=== PATIENT | female | born 1930 | race Caucasian/White ===

== ENCOUNTER 2016-12-18 15:18 | Inpatient (IN) ==
--- NOTE | 2016-12-18 15:49 | Emergency Department Note ---
Disposition Clinical Impression: Acute asthmatic bronchitis, Hypoxia, Failure of outpatient treatment, New onset atrial fibrillation Disposition: Admitted As Inpatient Condition: Good Referrals: Scooter Ferrer MD [Primary Care Provider] - Forms: ED Satisfaction Letter SOB HPI - General Chief Complaint: ED Shortness of Breath/Dyspnea Stated Complaint: wheezing Time Seen by Provider: 12/18/16 15:20 Source: patient Limitations: no limitations Nursing Notes Reviewed: Yes Vital Signs Reviewed: Yes - History of Present Illness 86-year-old female is brought to the emergency department after being seen by Dr. Ferrer in his office. Patient recently has been having problems with her breathing and started on prednisone a few days ago. The patient was reevaluated today and seemed to be getting worse with her difficulty in breathing and she was brought to the emergency department for further evaluation. Patient denies any chest pain. She does have a cough but is not not productive since she does not experience it. Should there is been no obvious fever. She denies any nausea vomiting. She has a past history of dementia and COPD. - Related Data Home Medications Medication Instructions Recorded Confirmed Albuterol Sulfate [Proair Hfa] 2 puff IH Q4H PRN 12/18/16 12/18/16 Aspirin 81 mg PO DAILY 12/18/16 12/18/16 Diltiazem HCl [Diltiazem 24Hr Cd] 120 mg PO 12/18/16 Donepezil HCl [Aricept] 5 mg PO DAILY 12/18/16 12/18/16 Ibuprofen [Motrin] 800 mg PO Q8HR PRN 12/18/16 12/18/16 Lovastatin 40 mg PO DAILY 12/18/16 12/18/16 Memantine [Namenda] 5 mg PO BID 12/18/16 12/18/16 PredniSONE [Prednisone] 10 mg PO DAILY 12/18/16 12/18/16 Triamterene/HCTZ 37.5/25mg 1 each PO DAILY 12/18/16 12/18/16 [Dyazide] Allergies Allergy/AdvReac Type Severity Reaction Status Date / Time No Known Allergies Allergy Verified 12/18/16 15:33 Review of Systems: Constitutional: [Negative for fever and chills.] HENT: [Negative for congestion.] Eyes: [Negative for discharge.] Respiratory: See history of present illness Cardiovascular: [Negative for chest pain.] Gastrointestinal: [Negative for nausea, vomiting, abdominal pain and diarrhea.] Endocrine: [Negative for excessive thirst,urination] Genitourinary: [Negative for dysuria and frequency.] Musculoskeletal: [Negative for myalgias and arthralgias.] Skin: [Negative for rash.] Neurological: [Negative for dizziness, localized weakness and headaches.] Psychiatric/Behavioral: [Negative for nervous/anxious.] All other systems reviewed and are negative. Past Medical History - Past Medical History Attestation: Yes The following information was validated with the patient. Source: patient Medical history: Reports: arthritis, dementia, hyperlipidemia, hypertension Psychiatric history: Reports: no psych history - Social History Smoking Status: Never smoker Smokeless Tobacco Status: No Alcohol use: Reports: none Drug use: Reports: none Physical Exam Constitutional: Patient is [alert], [healthy but elderly], [well nourished, well developed], mild tachypnea and cooperative. . The patient appears mildly symptomatic with audible noises with breathing, nontoxic, and appears mildly ill. There is [no pain]. HENT: Head: Normocephalic and atraumatic. Right Ear: External ear normal. Left Ear: External ear normal. Nose: Nose normal. Mouth/Throat: Oropharynx is clear and mucous membranes show [good hydration.][] Eyes: Conjunctivae and EOM are normal. Pupils are equal, round, and reactive to light. Right eye exhibits [no] discharge. Left eye exhibits [no] discharge. Neck: Trachea is midline, normal range of motion and [phonation normal]. Neck supple. Cardiovascular: [Regular rhythm], S1 normal, S2 normal, normal heart sounds and intact distal pulses. Exam reveals no gallop and no friction rub. No murmur heard. Pulmonary/Chest: Effort increased No stridor. Mild tachypnea. [No] respiratory distress. There are [no] decreased breath sounds. There are diffuse rhonchi primarily heard throughout all lung clark with very few wheezes Abdominal: Soft. [Bowel sounds are normal]. There exhibits [no] distension and [no] mass. There is no hepatosplenomegaly. There is [no tenderness], [no] CVA tenderness. There is [no rigidity, no rebound, no guarding]. Musculoskeletal: Normal range of motion of uninvolved extremities. There exhibits [no edema]. [ ] Neurological: Patient is alert. Patient displays no atrophy and no tremor. No cranial nerve deficit and exhibits normal muscle tone. Coordination normal. Skin: Skin is warm and dry. No rash noted. No erythema. Psychiatric: Patient has a normal mood,affect, behavior, judgment, and thought content. Course Course Narrative: Patient was discussed with Dr. Ferrer and we have decided to admit her to the hospital for treatment related to her asthma and new onset atrial fibrillation - Reevaluation(s) Reevaluation #1: Patient on repeat evaluation after receiving breathing treatment and Solu- Medrol shows significant improvement of her audible noises related to her breathing. The daughter states that she has significant amount of sputum production that is now cause significant improvement. Vital Signs Temperature 97.9 F 12/18/16 15:25 Pulse Rate 118 12/18/16 15:25 Respiratory Rate 24 12/18/16 15:25 Blood Pressure 175/93 12/18/16 15:25 O2 Sat by Pulse Oximetry 95 12/18/16 15:25 Temperature 97.9 F 12/18/16 15:25 Pulse Rate 110 12/18/16 17:15 Respiratory Rate 20 12/18/16 17:15 Blood Pressure 162/90 12/18/16 17:15 O2 Sat by Pulse Oximetry 98 12/18/16 17:16 Oxygen Delivery Oxygen Delivery Nasal Cannula Shortness of Breath/Dyspnea - Lab Data Lab results reviewed: Yes I reviewed the patient's lab results. Result diagrams: 12/18/16 16:15 12/18/16 16:15 Lab Results 12/18/16 12/18/16 12/18/16 Range/Units 16:15 16:15 16:15 WBC 11.2 H (4.3-11.1) K/mcL RBC 4.44 (3.82-4.97) M/mcL Hgb 13.3 (11.5-15.4) g/dL Hct 38.4 (35.3-44.9) % MCV 86.5 (83.0-100.0) fL MCH 30.0 (28.0-33.3) pg MCHC 34.6 (31.6-35.5) g/dL RDW 13.6 (11.5-14.5) % Plt Count 223 (140-400) K/mcL MPV 10.5 (9.4-12.4) fL Immature Gran % 2.0 (0-4) % Seg Neutrophils % 82.3 % Lymphocytes % 6.0 % Monocytes % 9.4 % Eosinophils % 0.0 % Basophils % 0.3 % Neutrophils # 9.2 H (1.6-8.9) K/mcL Lymphocytes # 0.7 (0.6-4.6) K/mcL Monocytes # 1.1 (0.0-1.3) K/mcL Eosinophils # 0.0 (0.0-0.6) K/mcL Basophils # 0.0 (0.0-0.2) K/mcL ABG pH (7.32-7.45) pH Units ABG pCO2 (35-45) mmHg ABG pO2 (85-104) mmHg ABG HCO3 (21-27) mEQ/L ABG Total CO2 (20-26) mEq/L ABG O2 Saturation (95-98) % ABG Base Excess (-2.0 to 3.0) mEq/L Lactate (0.7-2.1) mmol/L Blood Gas Modality Sodium 138 (136-145) mEq/L Potassium 3.7 (3.5-4.5) mEq/L Chloride 103 (98-109) mEq/L Carbon Dioxide 24 (19-29) mEq/L BUN 34 H (7-20) mg/dL Creatinine 1.09 (0.57-1.11) mg/dL Est GFR ( Amer) 58 L (> 60) Est GFR (Non-Af Amer) 48 L (> 60) BUN/Creatinine Ratio 31 H (6-26) Glucose 205 H (70-99) mg/dL Calculated Osmolality 300 (280-300) Calcium 9.8 (8.6-10.8) mg/dL Total Bilirubin 0.3 (0.2-1.2) mg/dL Direct Bilirubin 0.1 (0.0-0.5) mg/dL Indirect Bilirubin 0.2 (0.0-1.2) mg/dL AST 20 (5-34) Units/L ALT 17 (0-55) Units/L Alkaline Phosphatase 56 (38-126) Units/L Troponin I 0.04 H* (0-0.03) ng/mL B-Natriuretic Peptide (0-100) pg/mL Serum Total Protein 8.1 (6.0-8.3) g/dL Albumin 3.7 (3.5-5.0) g/dL Globulin 4.4 H (2.4-3.5) g/dL Albumin/Globulin Ratio 0.8 L (1.1-2.2) 12/18/16 12/18/16 Range/Units 16:15 16:25 WBC (4.3-11.1) K/mcL RBC (3.82-4.97) M/mcL Hgb (11.5-15.4) g/dL Hct (35.3-44.9) % MCV (83.0-100.0) fL MCH (28.0-33.3) pg MCHC (31.6-35.5) g/dL RDW (11.5-14.5) % Plt Count (140-400) K/mcL MPV (9.4-12.4) fL Immature Gran % (0-4) % Seg Neutrophils % % Lymphocytes % % Monocytes % % Eosinophils % % Basophils % % Neutrophils # (1.6-8.9) K/mcL Lymphocytes # (0.6-4.6) K/mcL Monocytes # (0.0-1.3) K/mcL Eosinophils # (0.0-0.6) K/mcL Basophils # (0.0-0.2) K/mcL ABG pH 7.43 (7.32-7.45) pH Units ABG pCO2 37 (35-45) mmHg ABG pO2 67 L (85-104) mmHg ABG HCO3 24.6 (21-27) mEQ/L ABG Total CO2 25.7 (20-26) mEq/L ABG O2 Saturation 94 L (95-98) % ABG Base Excess 0.4 (-2.0 to 3.0) mEq/L Lactate 3.0 H (0.7-2.1) mmol/L Blood Gas Modality NC Sodium (136-145) mEq/L Potassium (3.5-4.5) mEq/L Chloride (98-109) mEq/L Carbon Dioxide (19-29) mEq/L BUN (7-20) mg/dL Creatinine (0.57-1.11) mg/dL Est GFR ( Amer) (> 60) Est GFR (Non-Af Amer) (> 60) BUN/Creatinine Ratio (6-26) Glucose (70-99) mg/dL Calculated Osmolality (280-300) Calcium (8.6-10.8) mg/dL Total Bilirubin (0.2-1.2) mg/dL Direct Bilirubin (0.0-0.5) mg/dL Indirect Bilirubin (0.0-1.2) mg/dL AST (5-34) Units/L ALT (0-55) Units/L Alkaline Phosphatase (38-126) Units/L Troponin I (0-0.03) ng/mL B-Natriuretic Peptide 245 H (0-100) pg/mL Serum Total Protein (6.0-8.3) g/dL Albumin (3.5-5.0) g/dL Globulin (2.4-3.5) g/dL Albumin/Globulin Ratio (1.1-2.2) - Radiology Data Radiology results reviewed: Yes I reviewed the patient's radiology results. I have contemporaneously read the chest x-ray which has the following findings: There is no acute infiltrate noted on this exam. - EKG Data EKG attestation: Yes I reviewed and interpreted this EKG. Rate: Reports: tachycardia Rhythm: Reports: A.Fib, PVC's [place]/QRS: Reports: normal Interpretation: Reports: nonspecific ST-T wave changes
[2016-12-18] MEDS ORDERED: Levalbuterol Neb 1.25 MG/3 ML IH ONE (16:25)
[2016-12-18 16:41] LABS: ABG Base Excess 0.4 mEq/L (-2.0 to 3.0); ABG HCO3 24.6 mEQ/L (21-27); ABG Oxygen Saturation 94 % (95-98); ABG PCO2 37 mmHg (35-45); ABG PH 7.43 pH Units (7.32-7.45); ABG PO2 67 mmHg (85-104); ABG TCO2 25.7 mEq/L (20-26)
[2016-12-18 16:45] LABS: Basophils % 0.3 %; Hematocrit 38.4 % (35.3-44.9); Hemoglobin 13.3 g/dL (11.5-15.4); Lymphocytes # 0.7 K/mcL (0.6-4.6); Mean Corpuscular HGB Conc 34.6 g/dL (31.6-35.5); Mean Corpuscular Volume 86.5 fL (83.0-100.0); Mean Platelet Volume 10.5 fL (9.4-12.4); Monocytes # 1.1 K/mcL (0.0-1.3); Monocytes % 9.4 %; Platelet Count 223 K/mcL (140-400); Red Blood Count 4.44 M/mcL (3.82-4.97); Red Cell Distribution Width 13.6 % (11.5-14.5); Segmented Neutrophils % 82.3 %
[2016-12-18 16:54] LABS: Albumin 3.7 g/dL (3.5-5.0); Albumin/Globulin Ratio 0.8 (1.1-2.2); Bilirubin,Direct 0.1 mg/dL (0.0-0.5); Bilirubin,Indirect 0.2 mg/dL (0.0-1.2); Bilirubin,Total 0.3 mg/dL (0.2-1.2); Calcium 9.8 mg/dL (8.6-10.8); Globulin 4.4 g/dL (2.4-3.5); Potassium 3.7 mEq/L (3.5-4.5); Total Protein 8.1 g/dL (6.0-8.3)
[2016-12-18 17:03] LABS: Neutrophils # 9.2 K/mcL (1.6-8.9)
[2016-12-18] MEDS ORDERED: CefTRIAXone 1,000 MG VIAL IM SCH (18:00)
[2016-12-18] MEDS ORDERED: Ondansetron 4 MG/2 ML VIAL IVP PRN (18:11)
[2016-12-18] MEDS ORDERED: CefTRIAXone 1,000 MG VIAL IVPB SCH (18:11)
[2016-12-18] MEDS ORDERED: Ibuprofen 800 MG TABLET PO PRN (18:12)
[2016-12-18] MEDS: CefTRIAXone 1,000 MG in D5% in Water (Mini-Bag+) 100 ML IVPB SCH (20:15)
[2016-12-18] MEDS: Albuterol 2.5 MG/3 ML NEBULIZER IH SCH (21:42)
--- NOTE | 2016-12-18 22:37 | Internal Med History&Physical ---
Date of Encounter: 12/18/16 Time of Encounter: 22:27 Assessment and Plan (1) Acute asthmatic bronchitis Current visit: Yes Status: Acute Patient failed outpatient treatment for exacerbation of asthma on 2 visits to the office and was sent to the emergency room for evaluation. She had a hypoxic , tachypnea, wheezing which are all now improved. Continuous IV steroids, oxygen as needed, pulmonary treatments. (2) Hypoxia Current visit: Yes Status: Acute In the office O2 saturation was 89%. It is improved now. His oxygen PRN as well as nebulizer machine. (3) New onset atrial fibrillation Current visit: Yes Status: Acute In the office she was found to have irregular heart rate and atrial fibrillation confirmed on 12 lead EKG and monitor tonight. In the officer rate was 120, it is now 80 to 110. She uses diltiazem long-term for blood pressure control, we will increase the rate control as well. She is not a good candidate for anticoagulation because of her frailty, age, fall risk and dementia. (4) Elevated troponin Current visit: Yes Status: Acute She had elevated troponin to 0.04 in the emergency room. She has had no cardiac type chest pain. It is likely related to her tachycardia. Doubt true myocardial infarction. We will continue to monitor but I do not feel with her medical problems and age that she needs aggressive cardiac intervention, catheterization etc. She has had no angina. (5) Dementia Current visit: Yes Status: Acute She has chronic history dementia, she is pleasant and sometimes becomes anxious and agitated. Family takes care of her 24 hours per day. A daughter will be staying with her tonight. We will continue her Aricept and Namenda, I am not sure it really makes that much difference though. Qualifiers: Dementia type: Alzheimer's disease Alzheimer's disease onset: late-onset Dementia behavioral disturbance: without behavioral disturbance Qualified Code (s): G30.1 - Alzheimer's disease with late onset; F02.80 - Dementia in other diseases classified elsewhere without behavioral disturbance (6) Diet-controlled diabetes mellitus Current visit: Yes Status: Acute She has long-standing history of diet controlled diabetes. Elevated blood sugar likely from steroid use. Currently her sugar is elevated and we will monitor. Baseline glycohemoglobin will be ordered. (7) DVT prophylaxis Current visit: Yes Status: Acute Because of her age, and decreased ambulation currently we will arrange DVT prophylaxis with Loven[facility] Internal Medicine - H&P: HPI Chief complaint: Patient reports worsening breathing Admitted From: Emergency Dept Plans for Post Hospital Care: Home History of present illness: Ms. Santana is a 86 year old female with known history of asthma, diet control diabetes, hyperlipidemia and dementia was seen in the office for the 2nd time in 5 days for symptoms of difficulty with breathing. She was seen last Friday, 5 days ago with a history of wheezing in trouble breathing. She had wheezes and was treated for exacerbation of asthma with prednisone and inhaled bronchodilator. However, she is now worsened. The family states she is "breathing harder and wheezing more ". She denies any cardiac chest pain. With her dementia she is a poor historian. The daughter who usually takes care of her is ill and at Urgent Care and a different daughter brought her in to be seen today. She has been compliant with her medications. No fever or chills or hemoptysis. No other localizing symptoms by this patient. In the office she was found to have oxygen saturation of 89%, heart rate 120s and irregular, audible wheezing and rhonchi across the room, tachypnea with respiratory rate in the 20s. She was then sent to the emergency room for further evaluation prior to admission. After respiratory treatment in the emergency room and starting her medication she has shown improvement. She and her daughter think that she is improved. She is able to lie down at 45 to sleep without being too dyspneic. She denies any cardiac chest pain or tachycardia. Her monitor shows new onset atrial fibrillation. Past Med Surg Social Fam HX - Past Medical History Medical history: arthritis, asthma, dementia, diabetes (Diet controlled diabetes ), hyperlipidemia, hypertension Psychiatric history: other (Dementia with related anxiety) - Social History Smoking Status: Never smoker Smokeless Tobacco Status: No Alcohol use: none Drug use: none - Family History Daughter History Unknown: Yes Adopted: No Age: 46 Twin of Family Member: Yes, Identical Living Status: Age at : 46 Cause of : Cancer Hx Family Cardiac Disorders: No Hx Family Respiratory Disorders: No Hx Family Cancer: Yes Hx Family GI Disorders: No Hx Family Genitourinary Disorders: No Hx Family Endocrine Disorder: No Hx Family Musculoskeletal Disorders: No Hx Family Neuromuscular Disorders: No Hx Family Neurologic Disorders: No Hx Family HEENT Disorders: No Hx Family Autoimmune Disorders: No Hx Family Reproductive Disorders: No Hx Family Psychosocial Disorders: No Hx Family Medical Disorders: No Father Living Status: Hx Family Endocrine Disorder: Yes (Diabetes, gout) Mother Living Status: Cause of : Unknown Sister Living Status: Still Living Hx Family Endocrine Disorder: Yes (Diabetes) Internal Medicine - H&P: Meds Albuterol Sulfate [Proair Hfa] 2 puff IH Q4H PRN 12/18/16 [History] Aspirin 81 mg PO DAILY 12/18/16 [History] Diltiazem HCl [Diltiazem 24Hr Cd] 120 mg PO 12/18/16 [History] Donepezil HCl [Aricept] 5 mg PO DAILY 12/18/16 [History] Ibuprofen [Motrin] 800 mg PO Q8HR PRN 12/18/16 [History] Lovastatin 40 mg PO DAILY 12/18/16 [History] Memantine [Namenda] 5 mg PO BID 12/18/16 [History] PredniSONE [Prednisone] 10 mg PO DAILY 12/18/16 [History] Triamterene/HCTZ 37.5/25mg [Dyazide] 1 each PO DAILY 12/18/16 [History] Allergies No Known Allergies Allergy (Verified 12/18/16 15:33) - Constitutional Constitutional: no fever(s), no falls, no night sweats - EENT Eyes: no change in vision Ears: no ear discharge, no ear pain Nose, mouth and throat: no neck pain, no sore throat - Cardiovascular Cardiovascular ROS IM: no chest pain, no lightheadedness, no palpitations - Respiratory Respiratory: cough, dyspnea, dyspnea on exertion, wheezing, chest congestion, no hemoptysis, no pain on inspiration, no excessive phlegm production - Gastrointestinal Gastrointestinal: no change in bowel habits, no diarrhea, no nausea, no vomiting - Genitourinary Genitourinary: no dysuria, no urinary frequency Menstruation: post menopausal - Musculoskeletal Musculoskeletal ROS IM: no back pain, no muscle weakness - Integumentary Integumentary IM: no rash - Neurological Neurological ROS: no abnormal speech, no focal weakness - Psychiatric Additional comments: She has a chronic history of dementia, pleasant but relies on her family for everything. She is a poor historian. - Allergic/Immunologic Allergic/Immunologic: wheezing - Constitutional Vitals: Temp Pulse Resp BP Pulse Ox 97.3 F L 87 16 166/67 98 12/18/16 18:57 12/18/16 18:57 12/18/16 18:57 12/18/16 18:57 12/18/16 18:57 General appearance: Present: A&O X 2. Absent: answers questions appropriately ( She has dementia, she gets anxious and looks to others for the answers. This is her baseline now.) - Eye Eye exam: Present: EOMI. Absent: scleral icterus Pupils: Present: PERRL - ENT ENT exam: Present: mucous membranes moist, normal exam, TM's normal bilaterally - Neck Neck exam general surgery: Absent: lymphadenopathy, tenderness, nuchal rigidity , thyromegaly - Respiratory Additional comments: Course rhonchi and wheezes heard across the room, improved since admitted to hospital. Diffuse wheezes on auscultation and scattered rhonchi. No crackles or rales. Less tachypnea now. No orthopnea. No air hunger now. - Cardiovascular Cardiovascular exam: Present: irregular rhythm, +S1, +S2. Absent: systolic murmur - GI/Abdominal GI/Abdominal exam: Present: soft, no peritoneal signs. Absent: hepatomegaly, tenderness - Extremities Exam Extremities exam: Absent: calf tenderness, mottling, pedal edema, tenderness - Neurological Exam Neurological exam: Present: CN II-XII intact, strengths equal and symetr throughout. Absent: facial droop, speech deficit - Psychiatric Additional comments: She gets anxious, she is pleasant and upbeat. She really cannot answer questions and looks to others for those answers. This is at her baseline. Internal Med - H&P Results - Labs CBC & Chem 7: 12/18/16 16:15 12/18/16 16:15 Labs: Minimally elevated white blood cell count. Glucose elevated after having been on steroids a few days. - EKG Data -: EKG Interpreted by Myself (EKG shows atrial fibrillation with heart rate 111. Occasional PVC. ) - Diagnostic Studies Chest x-ray Additional comments: No infiltrate noted. No CHF
[2016-12-19] MEDS: Albuterol 2.5 MG/3 ML NEBULIZER IH PRN ×2 (00:53→13:25)
[2016-12-19] MEDS: Albuterol 2.5 MG/3 ML NEBULIZER IH SCH ×4 (04:09→22:14)
[2016-12-19] MEDS: *HR* Enoxaparin 30 MG/0.3 ML SYRINGE SQ SCH (04:09)
[2016-12-19 05:25] LABS: Basophils % 0.1 %; Hematocrit 34.2 % (35.3-44.9); Immature Granulocytes % 1.5 % (0-4); Lymphocytes # 0.6 K/mcL (0.6-4.6); Lymphocytes % 7.1 %; Mean Corpuscular HGB Conc 35.1 g/dL (31.6-35.5); Mean Corpuscular Hemoglobin 29.9 pg (28.0-33.3); Mean Corpuscular Volume 85.1 fL (83.0-100.0); Mean Platelet Volume 10.5 fL (9.4-12.4); Monocytes # 0.2 K/mcL (0.0-1.3); Neutrophils # 7.2 K/mcL (1.6-8.9); Platelet Count 188 K/mcL (140-400); Red Blood Count 4.02 M/mcL (3.82-4.97); Red Cell Distribution Width 13.4 % (11.5-14.5); Segmented Neutrophils % 89.3 %
[2016-12-19 05:55] LABS: BUN/Creatinine Ratio 36 (6-26); Blood Urea Nitrogen 30 mg/dL (7-20); Calcium 9.1 mg/dL (8.6-10.8); Carbon Dioxide 22 mEq/L (19-29); Chloride 103 mEq/L (98-109); Glucose 208 mg/dL (70-99); Osmolality,Calculated 298 (280-300); Potassium 3.1 mEq/L (3.5-4.5); Sodium 138 mEq/L (136-145); eGFR For African Americans > 60 (> 60); eGFR For Non-African Americans > 60 (> 60)
[2016-12-19] MEDS: Aspirin 81 MG TAB.CHEW PO SCH (08:46)
[2016-12-19 08:59] LABS: Hemoglobin A1C 5.9 %
[2016-12-19] MEDS ORDERED: Diltiazem CD (24hr) 240 MG CAPSULE PO SCH (09:00)
[2016-12-19] MEDS ORDERED: Diltiazem CD (24hr) 120 MG CAPSULE PO SCH (09:00)
--- NOTE | 2016-12-19 11:26 | Internal Med Progress Note ---
Date of Encounter: 12/19/16 Time of Encounter: 11:21 - Assessment and plan (1) Acute asthmatic bronchitis Current Visit: Yes Status: Acute Assessment and plan: Overall respiratory status is somewhat better. I am still concerned about the large airway sound and I wonder whether she may have a luminal lesion or foreign body. Unless she is markedly improved I will order a CT scan of the chest. Continue with steroids and antibiotics, nebulizer treatments and oxygen (2) Hypoxia Current Visit: Yes Status: Acute Assessment and plan: Saturations are in the 90s with oxygen. Oxygen is being used by nasal cannula for comfort as well. (3) New onset atrial fibrillation Current Visit: Yes Status: Acute Assessment and plan: Currently she is rate controlled with 80s to 90s heart rate at rest. With increased her diltiazem to 240 mg daily. We will see how she does when she is out of bed as well. I discussed with daughter the decision to not anticoagulate her. Her troponin is normal. (4) Elevated troponin Current Visit: Yes Status: Resolved Assessment and plan: On repeat today it is normal. No signs of an OH. (5) Dementia Current Visit: Yes Status: Acute Assessment and plan: At baseline. Pleasant and cooperative. Continue her current medications Qualifiers: Dementia type: Alzheimer's disease Alzheimer's disease onset: late-onset Dementia behavioral disturbance: without behavioral disturbance Qualified Code (s): G30.1 - Alzheimer's disease with late onset; F02.80 - Dementia in other diseases classified elsewhere without behavioral disturbance (6) Diet-controlled diabetes mellitus Current Visit: Yes Status: Acute Assessment and plan: Minimally elevated glucose due to her steroids. Her A1 C is excellent at 5.9% and should not need long-term intervention. (7) Hypokalemia Current Visit: Yes Status: Acute Assessment and plan: Potassium 3.1 this morning. We will add potassium supplement. (8) DVT prophylaxis Current Visit: Yes Status: Acute - Subjective Interval history: She thinks she slept well last night. She thinks she is better, but she says she is not sure because she has a poor memory. She denies a cardiac type chest pain. She denies any respiratory problems. She ate breakfast well. She denies any acute symptoms. Her daughter Jacki with whom the patient lives, is here today and said that she will discuss with family about long term placement at least short-term after hospitalization. She does not feel like her house is big enough nor can she take care of the patient if she may require oxygen and nebulizer treatment etc. Nursing staff no acute symptoms or problems. Patient has not been weaned down on the oxygen because of her audible wheezing and congestion and using oxygen for comfort as well. Patient has not been out of bed this morning. - Constitutional Vitals: Temp Pulse Resp BP Pulse Ox 98.5 F 97 20 156/68 95 12/19/16 07:30 12/19/16 07:30 12/19/16 07:30 12/19/16 07:30 12/19/16 07:30 General appearance: Present: A&O X 2, pleasant. Absent: answers questions appropriately (At her baseline for dementia) - Respiratory Additional comments: Large airway course breath sounds audible across the room when she is talking or active. On auscultation she has rhonchi as well as expiratory wheezes. No localization crackles. No air hunger. Saturations are in the 90s with oxygen - Cardiovascular Cardiovascular exam: Present: irregular rhythm (Rate controlled in the 80s to 90s at rest), +S1, +S2. Absent: systolic murmur - GI/Abdominal GI/Abdominal exam: Present: soft. Absent: tenderness - Extremities Exam Extremities exam: Absent: calf tenderness, pedal edema Internal Medicine: Result - Labs CBC & Chem 7: 12/19/16 05:05 12/19/16 05:05 Labs: Short CBC 12/19/16 Range/Units 05:05 WBC 8.1 (4.3-11.1) K/mcL Hgb 12.0 (11.5-15.4) g/dL Hct 34.2 L (35.3-44.9) % Plt Count 188 (140-400) K/mcL Neutrophils # 7.2 (1.6-8.9) K/mcL BMP 12/19/16 05:05 Sodium 138 Potassium 3.1 L Chloride 103 Carbon Dioxide 22 BUN 30 H Creatinine 0.83 Glucose 208 H Calcium 9.1 Cardiac Enzymes 12/19/16 Range/Units 05:05 Troponin I 0.03 (0-0.03) ng/mL White blood cell count is now normal. Potassium low at 3.1. Troponin is now in the normal range. - ABG Interpretation ABG results: ABG ABG pH 7.43 pH Units (7.32-7.45) 12/18/16 16:25 ABG pCO2 37 mmHg (35-45) 12/18/16 16:25 ABG pO2 67 mmHg (85-104) L 12/18/16 16:25 ABG O2 Saturation 94 % (95-98) L 12/18/16 16:25 Consult Discharge Plan - Plan Referrals: Scooter Ferrer MD [Primary Care Provider] -
[2016-12-19] MEDS: CefTRIAXone 1,000 MG in D5% in Water (Mini-Bag+) 100 ML IVPB SCH (17:35)
[2016-12-20] MEDS ORDERED: Albuterol 2.5 MG/3 ML NEBULIZER IH PRN (00:01)
[2016-12-20] MEDS: *HR* Enoxaparin 30 MG/0.3 ML SYRINGE SQ SCH (06:04)
[2016-12-20] MEDS: Albuterol 2.5 MG/3 ML NEBULIZER IH SCH ×4 (06:05→22:13)
--- NOTE | 2016-12-20 06:58 | Internal Med Progress Note ---
Date of Encounter: 12/20/16 Time of Encounter: 06:49 - Assessment and plan (1) Acute asthmatic bronchitis Current Visit: Yes Status: Acute Assessment and plan: Her pulmonary status may be a tad better today, I still think she needs a CT scan to differentiate the large airway anatomy to rule out bronchiectasis versus foreign body versus intraluminal lesion versus occult infiltrate etc. Will continue with the IV steroids, but will decrease the dose. Some confusion may be coming from the Solu-Medrol. Continue with nebulizer treatment. Oxygen PRN and for comfort. (2) Hypoxia Current Visit: Yes Status: Acute Assessment and plan: Sats have been in the low 90s with 2 L per nasal cannula through the night. Continue PRN (3) New onset atrial fibrillation Current Visit: Yes Status: Acute Assessment and plan: Atrial fibrillation rate is in the 90s at rest. I will increase her diltiazem as I anticipate tachycardia when she is ambulating. Avoiding beta constanza because of her bronchospasm. I do not think she is a great candidate for anticoagulation because of fall risk and age. (4) Elevated troponin Current Visit: Yes Status: Resolved (5) Dementia Current Visit: Yes Status: Acute Assessment and plan: She has decompensated regarding her confusion. This may be because of her hospitalization, the IV steroids, or infection etc. Family is staying with her 24 hours per day. She is not being aggressive, she is just saying things that are not true. The steroids will be decreased today. I think she will do better when she gets into a stable routine, environment that allows her to be out of bed and maintaining her ADLs etc. ECF placement is being planned. Qualifiers: Dementia type: Alzheimer's disease Alzheimer's disease onset: late-onset Dementia behavioral disturbance: without behavioral disturbance Qualified Code (s): G30.1 - Alzheimer's disease with late onset; F02.80 - Dementia in other diseases classified elsewhere without behavioral disturbance (6) Diet-controlled diabetes mellitus Current Visit: Yes Status: Acute Assessment and plan: Mildly elevated glucose due to the steroids. Her A1 C though is good at 5.9% and I do not think she needs more aggressive intervention than diet control for her diabetes. (7) Hypokalemia Current Visit: Yes Status: Acute Assessment and plan: Improving with the potassium supplement. Would repeat in a few days. (8) DVT prophylaxis Current Visit: Yes Status: Acute Assessment and plan: Continues with Lovenox for DVT prophylaxis. - Subjective Interval history: Patient is confused this morning, stating that a man came and gave her a bath and watched her last night. Her daughter Jacki who has been with her through the night says that is all fabricated and patient has been confused and "talking out of her head". The daughter thinks that the breathing is better, "less horse like sounding". The patient has had no cardiac. The patient has had no respiratory distress. Except for the confusion, she has not been climbing out of bed or acting erratically otherwise - Constitutional Vitals: Temp Pulse Resp BP Pulse Ox 98.2 F 95 18 138/73 92 L 12/20/16 04:50 12/20/16 04:50 12/20/16 04:50 12/20/16 04:50 12/20/16 04:50 General appearance: Present: A&O X 2, pleasant. Absent: answers questions appropriately (She is more confused this morning.) - Respiratory Additional comments: Resting comfortably when asleep at 45 angle. When she is talking or becomes animated she has course rhonchi large airway sounds and expiratory wheezes. On auscultation she has expiratory wheezes, less rhonchi today. A bit improved after cough. Small amount of sputum produced. - Cardiovascular Cardiovascular exam: Present: irregular rhythm, +S1, +S2. Absent: systolic murmur Additional comments: Heart rate in the 90s at rest. - GI/Abdominal GI/Abdominal exam: Present: soft. Absent: tenderness - Extremities Exam Extremities exam: Absent: calf tenderness, pedal edema Internal Medicine: Result - Labs CBC & Chem 7: 12/19/16 05:05 12/20/16 05:40 Labs: BMP 12/20/16 05:40 Potassium 3.3 L Potassium improved, not normal yet. - ABG Interpretation ABG results: ABG ABG pH 7.43 pH Units (7.32-7.45) 12/18/16 16:25 ABG pCO2 37 mmHg (35-45) 12/18/16 16:25 ABG pO2 67 mmHg (85-104) L 12/18/16 16:25 ABG O2 Saturation 94 % (95-98) L 12/18/16 16:25 Consult Discharge Plan - Plan Referrals: Scooter Ferrer MD [Primary Care Provider] -
[2016-12-20] MEDS: Aspirin 81 MG TAB.CHEW PO SCH (07:47)
[2016-12-20] MEDS: Diltiazem CD (24hr) 180 MG CAPSULE PO SCH (07:48)
[2016-12-20] MEDS ORDERED: Diltiazem CD (24hr) 240 MG CAPSULE PO SCH (09:00)
--- NOTE | 2016-12-20 15:28 | Electrocardiograph Report ---
[place] [id number] Test Date: 2016-12-18 Pat Name: Annabel Santana Department: 2001 Room: 112 Gender: F Wedding Makeup Artist: : [id number] Requested By: Otoniel Goldberg Order Number: [id number] Reading MD: Tiffany Ellison Measurements Intervals [place] Rate: 111 P: [place]: 0 QRS: 43 QRSD: 93 T: 74 QT: 294 QTc: 359 Interpretive Statements ATRIAL FIBRILLATION WITH RAPID VENTRICULAR RESPONSE WITH ABERRANT CONDUCTION OR VENTRICULAR PREMATURE COMPLEXES MODERATE ST DEPRESSION [0.05+ mV ST DEPRESSION] Electronically Signed On 12-20-2016 15:27:12 EST by Tiffany Ellison
[2016-12-20] MEDS ORDERED: CefTRIAXone 1,000 MG in D5% in Water (Mini-Bag+) 100 ML IVPB SCH (18:30)
[2016-12-21] MEDS: Albuterol 2.5 MG/3 ML NEBULIZER IH SCH ×2 (05:00→09:35)
[2016-12-21] MEDS: *HR* Enoxaparin 30 MG/0.3 ML SYRINGE SQ SCH (06:29)
[2016-12-21 07:13] VITALS: BP 106/67
--- NOTE | 2016-12-21 08:41 | Discharge Summary ---
Date of Encounter: 12/21/16 Time of Encounter: 08:25 - Discharge Diagnosis (1) Acute asthmatic bronchitis Priority: Primary (11) Status: Acute Comments: The patient was admitted with continuing hypoxia and respiratory difficulty despite aggressive outpatient treatment. She slowly responded to IV Solu-Medrol in increasing doses along with oxygen, and Rocephin. She had a chest CT done the day prior to discharge but it showed only bronchitis, no bronchiectasis or occult infiltrate. Plan is to discharge her to the long term today on oral steroids and 5 more days of Augmentin (as stated, she had been on Rocephin). She is not known to be allergic to any medications. At the time of discharge she still has some rhonchi but overall is moving air comfortably. O2 sats at rest though she will desat with activity. Code(s): J45.909 - Unspecified asthma, uncomplicated SNOMED Code(s): 159857674 (2) DVT prophylaxis Priority: Primary Status: Acute Comments: While in the hospital she got Lovenox for DVT prophylaxis. It is anticipated that her ambulation will improve at the long term and this was discontinued. She can get SUKHDEV hose for support. SNOMED Code(s): 611747837, 647891727 (3) Dementia Priority: Primary Status: Acute Comments: She has chronic dementia. I spoke to the daughter today and she feels the family can no longer care for home and that the placement in the long term today will likely be permanent. She says they will visit regularly. The patient is on Namenda and Aricept chronically. We can continue those. In speaking with Dr. Ferrer yesterday he informed me that she's not had a clear benefit from those medications so far. Qualifiers: Dementia type: Alzheimer's disease Alzheimer's disease onset: late-onset Dementia behavioral disturbance: without behavioral disturbance Qualified Code (s): G30.1 - Alzheimer's disease with late onset; F02.80 - Dementia in other diseases classified elsewhere without behavioral disturbance Code(s): F03.90 - Unspecified dementia without behavioral disturbance SNOMED Code(s): 52978898 (4) Diet-controlled diabetes mellitus Priority: Primary Status: Acute Comments: She takes no medication treatment for her diabetes. Blood sugars in the hospital were around 200. She has been on steroids and hopefully her sugar will come down when those are discontinued. Admission hemoglobin A1c was 5.9% dictating that her outpatient diabetes control has been good without medications. Code(s): E11.9 - Type 2 diabetes mellitus without complications SNOMED Code(s) : 028012908 (5) Failure of outpatient treatment Priority: Primary Status: Acute Comments: As above. Code(s): Z78.9 - Other specified health status SNOMED Code(s): 679157005 (6) Hypokalemia Priority: Secondary Status: Acute Comments: Admission potassium was 3.7. It fell to 3.1. With oral replacement repeat was 3.3. Continue the oral potassium for right now. I'm stopping her Dyazide at this point as her blood pressure this morning was 106/67. That likely will resolve her hypokalemia and her need for oral potassium replacement. Her dose of diltiazem was increased due to her atrial fibrillation and likely her blood pressure will be okay off the Dyazide. (7) Hypoxia Priority: Secondary Status: Acute Comments: O2 sats have been as above . Code(s): R09.02 - Hypoxemia SNOMED Code(s): 620228040, 258298763 (8) New onset atrial fibrillation Priority: Primary Status: Acute Comments: The patient was noted to have new onset atrial fibrillation the hospital. Her heart rate Dr. Ferrer's office was 120. She had been on diltiazem chronically at home, at a dose of 120 mg daily. This was increased stepwise in the hospital to control rate and her dose today is 360 mg. She will be discharged on this. Blood pressure was a little low with that today this continue her Dyazide as discussed above. Code(s): I48.91 - Unspecified atrial fibrillation SNOMED Code(s): 65785775 - Discharge Medications Home Medications: Albuterol Sulfate [Proair Hfa] 2 puff IH Q4H PRN 12/18/16 [History] Aspirin 81 mg PO DAILY 12/18/16 [History] Donepezil HCl [Aricept] 5 mg PO DAILY 12/18/16 [History] Ibuprofen [Motrin] 800 mg PO Q8HR PRN 12/18/16 [History] Memantine [Namenda] 5 mg PO BID 12/18/16 [History] PredniSONE [Prednisone] 10 mg PO DAILY 12/18/16 [History] Albuterol Neb [Proventil Neb] 2.5 mg IH [id number] PRN #0 inhsol 12/21/16 [Rx] Amoxicillin/Clavulanate [Augmentin] 875 mg PO BIDWM 12/21/16 [History] Diltiazem CD (24hr) [Cardizem CD] 360 mg PO DAILY cap.er.24h 12/21/16 [Rx] Ondansetron [Zofran] 4 mg IVP Q8HR PRN #0 vial 12/21/16 [Rx] Potassium Chloride 10 meq PO DAILY tab.er.prt 12/21/16 [Rx] Allergies/Adverse Reactions: Allergies No Known Allergies Allergy (Verified 12/18/16 15:33) Procedures/tests Complete & Pending: Procedures Performed prior 72 hours Category Date Time Status CT chest w con [CT] Routine Cat Scan 12/20/16 07:10 Completed Date of admission: 12/18/16 18:19 Primary care physician: Scooter Ferrer MD Consults: 12/20/16 00:01 Consult to [place] [CONS] Routine Reason for SW Consult: Please facilitate family discussion for long term placement. Thank you Discharging clinician: Nicolas Muniz Anticipated date of discharge: 12/21/16 - Patient Status Disposition: Transfer SNF Condition: Good Functional capacity at discharge: wheelchair bound Overall status at discharge: patient is not back to baseline - Discharge Instructions Follow Up With: Jacki Perea MD [Non-Partnered Physician] - Scooter Ferrer MD [Primary Care Provider] - (The patient's daughter tells me that Dr. Ferrer will visit the patient at the long term, though Dr. Perea will be assuming her overall medical care.) Additional Instructions: Transferred to our [facility] today via ambulance transfer. Dr. Marti Perea has agreed to assume care of this patient. - Diet and Activity Activity: as per physical therapy Diet: regular diet Interval History: The daughter says the patient is doing well. She feels she is ready go to the long term today. As stated above she and the other family members don't really able to care for her at home anymore. She says the patient has been agitated and confused, more visual and aural hallucinations. She talked about seeing her many years ago. She slept well through the night the daughter thinks that was because she was more agitated last day or so and was tired out from that. Status of her problems in the hospital as described above. I spoke to Dr. Ferrer and then Dr. Marti Perea yesterday. Dr. Perea is agreeable to accept the patient in transfer today at [facility]. Hospital course: Ms. Santana is a 86 year old female with history as above. I discussed her status with Dr. Ferrer yesterday and with Dr. Perea yesterday and again this morning in preparation for transfer of care. - Time Spent with Patient Total time spent providing and/or coordinating discharge services: Greater than 30 minutes - Constitutional Vitals: Temp Pulse Resp BP Pulse Ox 97.8 F 82 18 106/67 96 12/21/16 07:12 12/21/16 07:12 12/21/16 07:12 12/21/16 07:12 12/21/16 07:12 General appearance: Present: pleasant, no acute distress. Absent: answers questions appropriately (She is more confused this morning.) Exam: She appeared to be sleeping most of the time I was in the room. When I examined her she did briefly open her eyes and smile at me but then went back to sleep. - Respiratory Respiratory exam: Present: CTAB, rhonchi, wheezes. Absent: accessory muscle use , rales Additional comments: She is moving air comfortably. She has bilateral coarse rhonchi and wheezes. She is lying supine daughter asked that I not move her as she needs her rest, so I didn't get a full exam of her posterior lung clark. - Cardiovascular Cardiovascular exam: Present: irregular rhythm (supportive), +S1, +S2. Absent: diastolic murmur, gallop, rubs, systolic murmur Additional comments: Rhythm is irregularly irregular.
[2016-12-21] MEDS: Aspirin 81 MG TAB.CHEW PO SCH (09:32)
[2016-12-21] MEDS: Diltiazem CD (24hr) 180 MG CAPSULE PO SCH (09:32)
== END 2016-12-21 10:45 | DRG 203 ==
LOC: EMEROOGRE 15:18 → INPGRE 18:19
PROVIDERS: ADMIT Family Medicine; ATTEND Family Medicine